=== PATIENT | female | born 1965 | race Caucasian/White ===

== ENCOUNTER 2017-08-01 18:25 | Emergency (ER) | payer OTHER ==
[~2017-08-01] VITALS: Ht 162.6 cm; Wt 102.0 kg
[~2017-08-01 18:25] MED LIST: CYAN1000P IM; LEVO137T2 PO; MEDR4PAK3 PO; TAB-TAB PO; [UNRECOGNIZED DRUG - OTHER]
[2017-08-01 18:33] VITALS: BP 210/98; PULSE 78; RESP 16; TEMP 97.9; O2SAT 97
[2017-08-01] MEDS ORDERED: [UNRECOGNIZED DRUG - OTHER] (19:34)
[2017-08-01] MEDS ORDERED: BP SUPPORT (19:34)
[2017-08-01] MEDS ORDERED: methylPREDNISolone SOD SUCC 125 MG/2 ML VIAL IV PUSH ONE (19:45)
[2017-08-01] MEDS ORDERED: diphenhydrAMINE HCL 50 MG/ML VIAL IV PUSH ONE (19:45)
[2017-08-01] MEDS ORDERED: SODIUM CHLOR 0.9% 1000 ML INJ 1,000 ML IV ONE (19:45)
[2017-08-01] MEDS ORDERED: PROCHLORPERAZINE INJ 10 MG/2 ML VIAL IV PUSH ONE (19:45)
--- NOTE | 2017-08-01 19:46 | PD ---
HPI Chief Complaint: Injury Time Seen by Provider: 19:35 Travel History International Travel<30 days: No Contact w/Intl Traveler<30days: No Traveled to known affect area: No History of Present Illness HPI The patient is a 51-year-old female who presents to the emergency department for headache, lightheadedness, nausea, generalized weakness after falling out of a chair yesterday. The patient was at her sister's house yesterday when a chair broke and she fell backwards, striking her head against the wall of the falling to the ground. She denies any loss of consciousness or immediate headache. However, she awakened this morning with a headache that is posterior located associated with mild nausea. She also complains of being dizzy. She does complain of some posterior back pain after falling to the ground, but was able to ambulate. She does complain of some generalized weakness. She denies taking any anticoagulants. Patient does have a history of hypertension and hypothyroidism, takes wdju-sil-alzddne supplements/herbs for her medical problems. [facility] Past Medical History Hx Anticoagulant Therapy: No Hypertension: Yes Thyroid Disease: Yes ?: Not Past Surgical History Tonsillectomy: Yes Social History Alcohol Use: Yes (3 DRINKS PER DAY) Tobacco Use: No Substance Use: No Allergies-Medications (Allergen,Severity, Reaction): Coded Allergies: No Known Allergies (Verified Adverse Reaction, Unknown, 08/01/17) Reported Meds & Prescriptions Reported Meds & Active Scripts Active Reported [Bp Support] [raw thyroid] Review of Systems Except as stated in HPI: all other systems reviewed are Neg Eyes: No: Blurred Vision, Photophobia HENT: Positive: Headaches, Lightheadedness, Neck Pain Cardiovascular: No: Chest Pain or Discomfort Respiratory: No: Shortness of Breath Gastrointestinal: Positive: Nausea, No: Vomiting, Abdominal Pain Neurologic: Positive: Dizziness, Headache, No: Focal Abnormalities, Change in Mentation, Paresthesia, Sensory Disturbance Physical Exam Narrative GENERAL: Awake, alert, nontoxic-appearing 51-year-old female who appears her stated age and is in no acute respiratory distress. SKIN: Focused skin assessment warm/dry.. Head: Normocephalic, atraumatic. No visible cephalohematoma. EYES: Pupils equal and round. 4 mm bilateral and reactive. EOMs are intact. Patient is able to see fingers at a distance of 2 feet without difficulty. ENT: No nasal bleeding or discharge. Mucous membranes pink and moist. NECK: Trachea midline. No JVD. No midline tenderness. Back: No midline tenderness. Mild tenderness of the sacroiliac bilaterally. MUSCULOSKELETAL: No obvious deformities. No clubbing. No cyanosis. No edema. NEUROLOGICAL: Awake and alert. No obvious cranial nerve deficits. Motor grossly within normal limits. Normal speech. Nonfocal. Oriented 4. Follows commands without difficulty. PSYCHIATRIC: Appropriate mood and affect; insight and judgment normal. Data Data Last Documented VS Vital Signs Date Time Temp Pulse Resp B/P (MAP) Pulse Ox O2 Delivery O2 Flow Rate FiO2 08/01/17 18:33 97.9 78 16 210/98 (135) [address] Brain W/O Iv Contrast(Rout) (08/01/17 ) Diphenhydramine Inj (Benadryl Inj) (08/01/17 19:45) Prochlorperazine Inj (Compazine Inj) (08/01/17 19:45) Methylprednisolone So Succ Inj (Solumedr (08/01/17 19:45) Sodium Chlor 0.9% 1000 Ml Inj (Ns 1000 M (08/01/17 19:45) Iv Access Insert/Monitor (08/01/17 19:41) Ketorolac Inj (Toradol Inj) (08/01/17 21:00) Ed Discharge Order (08/01/17 21:00) MDM Medical Decision Making Medical Screen Exam Complete: Yes Emergency Medical Condition: Yes Medical Record Reviewed: Yes Interpretation(s) CT the brain is negative. No acute pathology noted. Differential Diagnosis Differential diagnosis includes closed head injury, concussion, subdural hemorrhage, tension headache, hypertensive urgency, hypertensive emergency, hypertension. Narrative Course IV was established and the patient was administered Benadryl, Compazine, Solu- Medrol, and IV fluids. Noncontrast CT of the brain was obtained. CT the brain is negative, no evidence of hemorrhage or acute infarction. The calvarium is intact, no evidence of skull fracture. The patient was reevaluated at 9 PM, her headache had gone from 8/10-08/17. Therefore, the patient was administered Toradol 30 mg intravenously. She was advised to avoid triggering factors to increase her headache over the next several days. Light activity. Follow-up with her primary physician. Diagnosis Primary Impression: Cephalgia Qualified Codes: R51 - Headache Additional Impression: Closed head injury Qualified Codes: S09.90XA - Unspecified injury of head, initial encounter Patient Instructions: General Instructions Additional Instructions: Please provide the patient a copy of her CT results at discharge. Follow-up with your primary physician. Work excuse for tomorrow. Return if symptoms worsen or progress. Med/Other Pt SpecificInfo: Prescription(s) given Scripts Yqfjnpeaxn-Ysnghawedhppj-Wbkdddkw (Fioricet) 50-300-40 Mg Cap 1 CAP PO Q4H Y for HEADACHE, #10 CAP 0 Refills Prov: Paulo Michel MD 08/01/17 Disposition: 01 DISCHARGE HOME Condition: Stable Paulo Michel MD Aug 01, 2017 19:46
--- NOTE | 2017-08-01 20:41 | RADRPT ---
EXAM DATE/TIME: 08/01/2017 20:26 [place] COMPARISON: No previous studies available for comparison. INDICATIONS : Trauma. Fall. Dizziness. RADIATION DOSE: 53.67 CTDIvol (mGy) MEDICAL HISTORY : None SURGICAL HISTORY : None. ENCOUNTER: Initial ACUITY: 2 days PAIN SCALE: 6/10 LOCATION: Bilateral occipital TECHNIQUE: Multiple contiguous axial images were obtained of the head. Using automated exposure control and adj ustment of the mA and/or kV according to patient size, radiation dose was kept as low as reasonably a chievable to obtain optimal diagnostic quality images. DICOM format image data is available electro nically for review and comparison. FINDINGS: CEREBRUM: The ventricles are normal for age. No evidence of midline shift, mass lesion, hemorrhage or acute in farction. No extra-axial fluid collections are seen. POSTERIOR FOSSA: The cerebellum and brainstem are intact. The 4th ventricle is midline. The cerebellopontine angle i s unremarkable. EXTRACRANIAL: The visualized portion of the orbits is intact. SKULL: The calvaria is intact. No evidence of skull fracture. CONCLUSION: Negative for fracture or dislocation. Follow up in 7-10 days is suggested if symptoms persist. Baldev Salcedo MD FACR on August 01, 2017 at 20:36 Board Certified Radiologist. This report was verified electronically.
[2017-08-01] MEDS ORDERED: KETOROLAC TROMETHAMINE 30 MG/ML (IVP) VIAL IV PUSH ONE (21:00)
[2017-08-01] MEDS ORDERED: BUTA1CAP PO (21:05)
== END 2017-08-01 22:19 | disposition home or self-care (01) ==
LOC: PHED 18:25 → PHEFT 22:19
DX: S09.90XA Unspecified injury of head, initial encounter (principal); R42 Dizziness and giddiness; R11.0 Nausea; M54.9 Dorsalgia, unspecified; R53.1 Weakness; I10 Essential (primary) hypertension; E03.9 Hypothyroidism, unspecified; W07.XXXA Fall from chair, initial encounter
CPT/HCPCS: 70450; 96374; 96375; 99285; J0780; J1200; J1885; J2930; J7030